=== PATIENT | male | born 1950 | race Caucasian/White ===

== ENCOUNTER → 2018-02-17 | Outpatient (CLI) | payer BC ==
--- NOTE | 2018-02-18 06:05 | PAP/PSG TECHNICIAN REPORT ---
[facility] [employer] Polysomnogram Report Study name: None Report date: 02/18/2018 Study date: 02/17/2018 Referring Physician: DR. JIMBO NICOLAS M.D. Name: TEENA AYALA V Interpreting Physician: Arnoldo Larose D.O. Date of : 1950 [employer]: Seda Cruz, PSGT. Sex: Male Age: 67 StudyType: PSG Weight: 145 lbs Height: 67 years, Height 5' 9.5" Neck Circum:15 inches BMI: 21.1 Medications: Flomax 0.4 mg. No other medications listed in chart. 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 A MSLT is to follow this test.Ess = 18, Neck = 15.5 inches. Parameters Monitored NPSG: E1-M2, E2-M1, Fp1-M2, Fp2-M1, F3-M2, F4-M2, F4-M1, C3-M2, C4-M2, C4-M1, O1-M2, O2-M2, O2-M1, T3-M2, T4-M1, P3-M2, P4-M1, CHIN1, CHIN2, HR, EKG, Legs, PFLOW, SNOR, FLOW, CFLOW, Tidal Volume, THOR, ABDO, SpO2, PLTH, CPRESS, ETCO2 Wave, ETCO2, pH Sleep Architecture Sleep Stages Time at Lights Off 9:19:46 PM STAGES Time (min.) TST (%) Time at Lights On 5:30:16 AM Wake 115.0 -- Total Recording Time (TRT) 491.00 min. N1 55.0 15 Total Sleep Period (TSP) 462.0 min. N2 223.5 60 Total Sleep Time (TST) 375.5min. N3 7.0 2 Awake Time 115.0 min. REM 90.0 24 Wake after Sleep Onset 86.5 min. Sleep Efficiency (SE) 77 % Sleep Onset Latency (PINA) 28.5 min. Number of Stage 1 Shifts None Awakenings 10 Stage Changes 48 Number of REM periods 4 REM 90.0 24 REM Latency 48.0 min. NREM 285.5 76 Body Position Analysis Supine Right Left Side Prone Vertical Total Sleep Time (min.) 156.6 82.5 170.3 252.86 0.0 0.2 Total Sleep Time (%) 33% 22% 45% 67 0% N/A% Total Sleep Time REM (min.) 26.5 21.7 41.8 None 0.0 0.0 Total Sleep Time NREM (min.) 96.1 60.9 128.5 None 0.0 0.0 Intermittent Wake (min.) 34.0 51.9 28.9 None 0.0 0.2 Total Sleep Period (%) 34% None None None None None Arousals Myoclonus (PLM) * Events Count Index Events Count Index Spontaneous 46 7 Events Awake (PLMW) 0 0.0 Respiratory 0 0.0 Events Asleep w/ Arousal (PLMA) 7 1.1 PLM 7 1 Events Asleep w/o Arousal (PLMS) 137 21.9 Snoring 3 0 Total Asleep 144 23.0 Total 56 9 Total 144 18 Respiratory Analysis * CA OA MA CH H RERA Total Count 0 0 0 0 0 0 0 Index 0.0 0.0 0.0 0 0.0 0 0.0 Mean Duration 0.0 0.0 0.0 0.00 0.0 0.0 0.0 Longest Duration 0.0 0.0 0.0 0.00 0.0 0.0 0.0 Respiratory Event Summary Total Supine ~Supine Right Left Prone REM NREM Apneas Count 0 0 0 0 0 N/A 0 0 Index 0.0 0 0 0.0 0.0 N/A 0 0 Hypopneas (4% Desat) Count 0 0 0 0 0 N/A 0 0 Index 0.0 0.0 0 0.0 0.0 N/A 0.0 0.0 Apneas & All Hypopneas Count 0 0 0 0 0 N/A 0 0 Index 0.0 0 0 0 0 N/A 0.0 0.0 Respiratory Events (Solution Architect+All Hyp+RERA) Count 0 0 0 0 0 N/A 0 0 Index 0.0 0 0 0.0 0.0 N/A 0.0 0.0 Respiratory Related Arousal Count 0 0 0 0 0 N/A 0 0 Index 0.0 0 0 0 0 N/A 0 0 Snoring Analysis Supine Right Left Prone REM NREM Total Snore duration 1.6 min Snores count 12 2 12 N/A 8 18 26 Snore mean duration 3.8 Sec Snores index 6 1 4 N/A 5.3 3.8 4.2 TST with snoring (%) 0.4% Desaturation Event Summary: Minimum %SpO2 Event Count Mean/Min/Max Duration(sec.) Desaturation Index % Time In Bed > 90 0 N/A 0.0 93.6 86 - 90 0 N/A 0.0 6.4 81 - 85 0 N/A 0.0 0.0 76 - 80 0 N/A 0.0 0.0 71 - 75 0 N/A 0.0 0.0 66 - 70 0 N/A 0.0 0.0 61 - 65 0 N/A 0.0 0.0 56 - 60 0 N/A 0.0 0.0 51 - 55 0 N/A 0.0 0.0 < 50 0 N/A 0.0 0.0 Total REM NREM Awake <50% 0.0 min. 0.0 min. 0.0 min. 0.0 min. 51 - 60% 0.0 min. 0.0 min. 0.0 min. 0.0 min. 61 - 70% 0.0 min. 0.0 min. 0.0 min. 0.0 min. 71 - 80% 0.0 min. 0.0 min. 0.0 min. 0.0 min. 81 - 90% 31.2 min. 9.0 min. 6.4 min. 15.8 min. 91 - 100% 453.7 min. 81.0 min. 279.1 min. 93.6 min. Average 92 92 92 92 Minimum SpO2 89 89 90 89 Desaturation Event Index 0.0 0.0 0.0 0.0 # Desat. Events below 89% 0 0 0 0 Time(%) with Saturation below 89% 0.0 0.0 0.0 0.0 Time(min.) with Saturation below 89% 0.0 0.0 0.0 0.0 Time (mins) REM (mins) NREM (mins) % of TST SpO2 Below 90% 0 0 N0 0.4 SpO2 Below 88% 375 90 285 0 Heart Rate Analysis Min (bpm) Max (bpm) Average (bpm) Awake 55 88 65 NREM 50 86 60 REM 47 85 60 Overall 47 86 60 Supplemental O2 Values Minimum O2 level: None Value Start Time End Time [employer] Comments PSG Study Mr. Ayala slept in the right, left, and supine positions. No cardiac arrhythmia. PLM's noted. No bruxism noted. Snoring was noted and scored as a 1 on a scale of 1 through 5. (0=no snoring, 5=snoring loud enough to be heard through a closed door or down the [address] way) Mr. Ayala awoke to use the restroom one time during the night. Mr. Ayala stated, I did not sleep as well as I do when I am in my own bed. The final report will be interpreted and signed by a sleep physician. The completed physician report will then be placed in the patient medical record. No significant respiratory events, or snoring was displayed. Therapy (cm H2O) 0 TIB (min.) 490.5 TST (min.) 375.5 Sleep Onset (min.) 28.5 REM Onset From Sleep (min.) 48.0 Sleep Efficiency % 77 Wakefulness (%) 23 Wakefulness (min.) 115.0 NREM 1 (%) 15 NREM 1 (min.) 55.0 NREM 2 (%) 60 NREM 2 (min.) 223.5 NREM 3 (%) 2 NREM 3 (min.) 7.0 REM (%) 24 REM (min.) 90.0 # Arousals 56 Arousal Index 9 # Snore 26 Snore Index 4.2 AHI 0.0 AHI Supine 0 AHI Non-Supine 0 NREM AHI 0.0 REM AHI 0.0 RDI 0.0 # Obstructive Apnea 0 # Central Apnea 0 # Mixed Apnea 0 # Hypopneas 0 RERAs 0 Total Respiratory Events 1 Time Below SpO2 89% (min.) 0.0 Mean NREM SpO2 (%) 92 Mean REM SpO2 (%) 92 Mean Sleep SpO2 (%) 92 Min NREM SpO2 (%) 90 Min REM SpO2 (%) 89 Position Supine (min.) 156.6 Position Non-supine (min.) 252.9 LM Index Sleep 23.0 LM Index NREM 26.5 LM Index REM 12.0 Mean Heart Rate (bpm) 60 Min Heart Rate (bpm) 47
--- NOTE | 2018-02-18 15:58 | POLYSOMNOGRAPH REPORT ---
[facility] MSLT REPORT Study Date: 02/18/2018 Report Date: 02/18/2018 Name: TEENA BERNARDO V Subject Code: Medicare: [facility] #: [id number] Sex: Male Referring Physician: DR. JIMBO NICOLAS M.D. Age: 67 Interpreting Physician: Arnoldo Larose D.O. Weight: 145 lbs [employer] Internship: LAYO Hernandez. : 1950 Study Indications: BMI: 21.1 Medications: Flomax 0.4mg Height: 5' 9.5" Medicare Date: Patient History Patient has a history of idiopathic hypersomnolence and states that both daughters have narcolepsy. Patient had a sleep study done last night and is here today for an MSLT. ESS=18 Nap 1 Nap 2 Nap 3 Nap 4 Nap 5 Mean Values Start Time: 7:25:19 AM 9:25:19 AM 11:25:19 AM 1:28:49 PM 3:22:19 PM - End Time: 7:44:49 AM 9:42:49 AM 11:42:49 AM 1:48:19 PM 3:39:49 PM - Time in Bed (min): 19.50 17.50 17.50 19.50 17.50 18.30 Total Sleep Time (min): 14.50 13.50 13.00 13.50 7.00 12.30 Sleep Latency* (min): 4.50 2.50 2.50 4.50 2.50 3.30 REM Latency (min): NONE NONE NONE NONE NONE 20.00 *Note: This report will display a default sleep latency of 20 minutes if the patient fails to sleep during a nap. Recording [employer] Internship Comments: Sleep was obtained during all 5 naps. Patient did not seem to struggle to stay awake between naps, he sat in a chair and watched videos or read most of the day. He always answered the pre-nap question as he was functioning at a high level or not at full alertness, but he always fell asleep in less than 5 minutes. Patient did have arousals during all 5 naps for no apparent reason. He thought he had dreamt during all of the naps except nap 5. No REM was obtained.
--- NOTE | 2018-02-21 15:03 | POLYSOMNOGRAPH REPORT ---
PROCEDURE PERFORMED: Overnight polysomnography followed by multiple sleep latency testing. CLINICAL DATA: The patient is a 67-year-old male with complaints of daytime somnolence. His Willis sleepiness scale score is 18. Reportedly, he has 2 daughters with narcolepsy. He completed the Willis sleepiness scale and has a score of 18, which would be representing severe daytime somnolence. The only known medication is Flomax. SLEEP ARCHITECTURE: The total sleep period was 462 minutes. The total sleep time was 375.5 minutes. The sleep efficiency was moderately reduced to 77%. The sleep latency was prolonged to 28.5 minutes. Wake after sleep onset was prolonged to 86.5 minutes. The REM latency was somewhat shortened at 48 minutes. There were 4 REM periods during the night. Sleep consisted of stage N1 15%, stage N2 60%, stage N3 2%, stage REM 24%. AROUSAL DATA: The patient had a total of 56 arousals including 46 spontaneous arousals, 7 PLM arousals, and 3 snoring arousals. The arousal index was 9. PLM DATA: The patient had a total of 144 periodic limb movements of sleep for a PLM index of 23. There were 7 arousals, associated with limb movements for a PLM arousal index of 1.1. EKG: The underlying cardiac rhythm was normal sinus. The cardiac rates ranged from 47-86 beats per minute with an average heart rate of 60 beats per minute. No arrhythmias noted. RESPIRATORY DATA: The patient had a total of 0 respiratory events. His apnea hypopnea index was 0. OXIMETRY DATA: Oxygen saturation average 92%. The minimum saturation was 89%. 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 Ayala slept in the right, left, and supine positions. No cardiac arrhythmia. PLMs noted. No bruxism noted. Snoring was noted and scored as a 1 on a scale of 1 through 5. Mr. Aylaa awoke to use the restroom one time during the night. He stated he did not sleep as well as he usually does in his own bed. MSLT DATA: Following the overnight sleep study, the patient underwent multiple sleep latency testing. This represents a series of 5 naps designed to evaluate for the degree of daytime somnolence and to help exclude narcolepsy. The patient fell asleep in all 5 naps. His minimum sleep latency was 2.5 minutes. The longest sleep latency was only 4.5 minutes. The mean sleep latency for 5 naps was 3.3 minutes. This reflects severe daytime somnolence. No naps had REM sleep, thus a diagnosis of narcolepsy cannot be made. The only known medication is Flomax. Many other medications potentially could be REM suppressing agents. Thus, if he were on REM suppressing agents that were unknown at the time of this study, this could affect the results. IMPRESSION: 1. No evidence of obstructive sleep apnea. 2. Excessive daytime somnolence - confirmed by multiple sleep latency testing. Idiopathic Hypersomnia is the diagnosis of exclusion. COMMENTS: The patient potentially has excessive daytime somnolence. It is unknown if he has any clinical symptoms that could correlate with narcolepsy such as cataplexy, hypnagogic hallucinations, or sleep paralysis. He did have reasonably good sleep during the overnight sleep study. He had more than 6 hours of sleep time. It is unknown what the patient's sleep habits are. If he would have chronically short nights of sleep, this alone could make the multiple sleep latency testing abnormal. RECOMMENDATIONS: 1. The patient should be advised of the appropriate principles of sleep hygiene. This would include allowing 7.5-8 hours of sleep time per night as well as having a regular sleep-wake schedule. 2. If the patient would happen to be taking any REM suppressing agents such as SSRIs, consideration could be given to stopping those medicines for 7 days or longer and repeating the overnight sleep study and multiple sleep latency testing. 3. Consideration could be given to pharmacologic therapy for the idiopathic hypersomnia. This requires clinical correlation in review of the patient's degree of symptoms. Consideration could be given to a trial of medication such as modafinil. Any history of cardiovascular disease should be taken into account prior to initiating treatment. MTDD
== END | disposition home or self-care (01) ==
LOC: C.NEUR 20:00
PROVIDERS: ATTEND Family Medicine
DX: G47.419 Narcolepsy without cataplexy (principal); Z02.89 Encounter for other administrative examinations